=== PATIENT | female | born 1955 | race Caucasian/White ===

== ENCOUNTER 2019-09-26 09:05 | Outpatient (CLI) | payer BC, SELFPAY ==
--- NOTE | 2019-09-26 09:23 | IR_ITS ---
WS: [id number] MYELOGRAM CERVICAL SPINE Fluoroscopic guided cervical myelogram CLINICAL INFORMATION: Cervical stenosis COMPARISON: None. TECHNIQUE: The procedure, including risks, benefits, and complications, were discussed with the patie nt who agreed to proceed. A timeout was performed to confirm correct patient, procedure, and site. Using sterile technique, the patient was prepped and draped in the usual sterile fashion. After admin istration of local anesthesia using 1% preservative-free lidocaine and using fluoroscopic guidance, a 22-gauge spinal needle was advanced into the subarachnoid space at the L2-3 level. Subsequently 13 c c of Omnipaque 300 was administered into the thecal sac. The needle was removed and hemostasis was ac hieved. Subsequently the table was tilted down and contrast flowed freely into the cervical spine. Sp ot fluoroscopic images were obtained. FLUOROSCOPIC TIME: 1.8 minutes. Spot fluoroscopic images demonstrate lumbar curve convex left. Moderate spondylitic changes cervical spine with straightening of the normal cervical lordosis. Slight anterolisthesis C2 on C3 measuring 2 .2 mm. This slightly increases in flexion measuring 3.1 mm. This decreases on extension to 2.4 mm Slight anterolisthesis C7 on T1. Disc space narrowing worse at C3-C4 C4-C5 C5-C6 and C6-C7. Please see CT myelogram report for additional detail. IR/[place] cervical [id number] IMPRESSION: 1. Uncomplicated cervical myelogram. 2. Straightening of the normal cervical lordosis with moderate spondylitic lita nges. 3. Mild instability at C2-3 described above.
--- NOTE | 2019-09-26 09:23 | CT_ITS ---
WS: [id number] CT CERVICAL MYELOGRAM TECHNIQUE: CT of the cervical spine coronal and sagittal reformatted images post intrathecal administ ration of contrast. CLINICAL INFORMATION: Neck pain COMPARISON: MRI June 21, 2019 DLP: 2279.[address] scans at [facility] use at least one of these dose optimization techniques: automat ed exposure control; mA and/or kV adjustment per patient size (includes targeted exams where dose is matched to clinical indication); or iterative reconstruction. FINDINGS: Straightening of the normal cervical lordosis. Moderate spondylitic changes. Anterior hypertrophic ch anges. Slight anterolisthesis C2 on C3 measuring 2.2 mm. C2-C3: Mild disc bulging with osteophytic ridging. Mild facet arthropathy worse in the left. Foramen are patent. C3-C4: Mild disc bulging with osteophytic ridging. Slight effacement of ventral thecal sac. Mild cent ral canal stenosis. Mild left greater than right foraminal narrowing. Mild facet arthropathy. C4-C5: Disc osteophyte complex with endplate ridging. Slight contact of the cervical cord. Mild left and no significant right foraminal narrowing. C5-C6: Disc osteophyte complex with endplate ridging. Central disc osteophyte protrusion with slight contact of the cervical cord. Moderate central canal stenosis. Mild to moderate bilateral bony forami nal narrowing. C6-C7: Left pericentral disc osteophyte protrusion with slight contact cervical cord. Mild central ca nal stenosis. Moderate left and mild right bony foraminal narrowing. Uncovertebral joint hypertrophy. Mild facet arthropathy. C7-T1: Slight anterolisthesis C7 on T1. Disc osteophyte complex with mild central canal stenosis. Mil d left greater than right foraminal narrowing. Visualized posterior fossa structures: Normal. CT/CT cervical spine w con [id number] IMPRESSION: 1. Straightening of the normal cervical lordosis with moderate spondylitic lita nges. 2. Slight anterolisthesis C2 on C3 measuring 2.2 mm. Trace anterolisthesis C7 on T1. 3. Mild to moderate central canal stenosis C4-C5 C5-C6 and C6-C7 due to disc o steophyte protrusions. 4. Prominent left pericentral disc osteophyte protrusion C6-C7 with slight con tact of the cervical cord. 5. Multilevel bony foraminal narrowing worse at left C5-C6 and left C6-C7.
[2019-09-26] MEDS: iohexol 300 mg/mL 50 mL Btl INTRATHECA (10:47)
== END 2019-09-26 09:06 | disposition home or self-care (01) ==
LOC: RADWPI 09:10
PROVIDERS: PCP Nurse Practitioner Family; Visit Provider Licensed Practical Nurse
DX: M48.02 Spinal stenosis, cervical region (principal); M50.223 Other cervical disc displacement at C6-C7 level
CPT/HCPCS: 62302; 72040; 72126; J2001

== ENCOUNTER → 2019-11-29 12:35 | Outpatient (BNVA) | payer BC, SELFPAY | PROVIDERS: PCP Nurse Practitioner Family; Referring Provider Specialist; Visit Provider Anesthesiology Pain Medicine | DX: M50.020 Cervical disc disorder with myelopathy, mid-cervical region, unspecified level (principal); M43.12 Spondylolisthesis, cervical region; M62.838 Other muscle spasm; Z79.891 Long term (current) use of opiate analgesic | CPT/HCPCS: 99204; 99205 ==

== ENCOUNTER → 2019-12-27 12:24 | Outpatient (BNVA) | payer BC, SELFPAY | PROVIDERS: PCP Nurse Practitioner Family; Visit Provider Anesthesiology Pain Medicine | DX: M50.020 Cervical disc disorder with myelopathy, mid-cervical region, unspecified level (principal); M43.12 Spondylolisthesis, cervical region; M54.42 Lumbago with sciatica, left side; M54.9 Dorsalgia, unspecified; M62.838 Other muscle spasm; Z79.891 Long term (current) use of opiate analgesic | CPT/HCPCS: 99213; 99214 ==

== ENCOUNTER → 2020-01-27 10:07 | Outpatient (BNVA) | payer BC, SELFPAY | PROVIDERS: PCP Nurse Practitioner Family; Visit Provider Anesthesiology Pain Medicine | DX: M54.42 Lumbago with sciatica, left side (principal); M54.9 Dorsalgia, unspecified; M43.12 Spondylolisthesis, cervical region; M50.020 Cervical disc disorder with myelopathy, mid-cervical region, unspecified level; M62.838 Other muscle spasm | CPT/HCPCS: 99213 ==

== ENCOUNTER → 2020-03-02 10:35 | Outpatient (BNVA) | payer BC, SELFPAY | PROVIDERS: PCP Nurse Practitioner Family; Visit Provider Anesthesiology Pain Medicine | DX: M50.020 Cervical disc disorder with myelopathy, mid-cervical region, unspecified level (principal); M43.12 Spondylolisthesis, cervical region; M54.42 Lumbago with sciatica, left side; M54.9 Dorsalgia, unspecified; M62.838 Other muscle spasm; Z79.891 Long term (current) use of opiate analgesic | CPT/HCPCS: 99213 ==